=== PATIENT | male | born 1960 | race African-American/Black ===

== ENCOUNTER 2017-08-04 12:41 | Inpatient (IN) | payer OTHER ==
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
[2017-08-04] MEDS ORDERED: MENTHOL/PHENOL 1 EACH UD MM PRN (15:54)
[2017-08-04] MEDS ORDERED: MAGNESIUM CITRATE 300 ML BOTTLE PO PRN (15:54)
[2017-08-04] MEDS ORDERED: P-EPHED 60MG/TRIPROLIDI 2.5MG TABLET PO PRN (15:54)
[2017-08-04] MEDS ORDERED: IBUPROFEN 400 MG TABLET (FP) PO PRN (15:54)
[2017-08-04] MEDS ORDERED: LOPERAMIDE HCL 2 MG CAPSULE PO PRN (15:54)
[2017-08-04] MEDS ORDERED: ACETAMINOPHEN 325 MG TABLET (FP) PO PRN (15:54)
[2017-08-04] MEDS ORDERED: hydrOXYzine PAMOATE 25 MG CAPSULE (FP) PO PRN (15:54)
[2017-08-04] MEDS ORDERED: guaiFENesin/D-METHORPHAN HB 10 ML UNIT-DOSE CUPS PO PRN (15:54)
[2017-08-04] MEDS ORDERED: MAG HYDROX/AL HYDROX/SIMETH 30 ML UNIT-DOSE CUP PO PRN (15:54)
[2017-08-04] MEDS ORDERED: TUBERCULIN PPD 5 TU/0.1ML VIAL ID ONE (20:26)
[2017-08-04 20:56] LABS: URINE APPEARANCE SLCLOUDY; URINE BILIRUBIN NEGATIVE (NEGATIVE); URINE BLOOD NEGATIVE (NEGATIVE); URINE COLOR AMBER; URINE GLUCOSE (UA) NEGATIVE (NEGATIVE); URINE KETONE TRACE (NEGATIVE); URINE LEUK ESTERASE TRACE (NEGATIVE); URINE NITRITE NEGATIVE (NEGATIVE); URINE PROTEIN NEGATIVE (NEGATIVE)
[2017-08-04] MEDS: diphenhydrAMINE HCL 50 MG CAPSULE PO PRN (21:02)
[2017-08-04] MEDS: ATORVASTATIN CA 40 MG TABLET (FP) PO SCH (21:02)
[2017-08-04] MEDS: THIAMINE HCL 100 MG TABLET (FP) PO SCH (21:02)
[2017-08-04 21:09] LABS: URINE MUCUS FEW; URINE RBC 6 /hpf (0-3); URINE WBC 3 /hpf (3-5)
[2017-08-04] MEDS ORDERED: PATIENT'S OWN MEDICATION (NON-FORMULARY) (Metformin Hcl [Glucophage] 1,000 MG) PO SCH (22:00)
[2017-08-05] MEDS ORDERED: METHADONE HCL 40 MG DISPERSABLE TABLET PO SCH (07:45)
[2017-08-05] MEDS ORDERED: METHADONE HCL 10 MG TABLET ONE (07:50)
[2017-08-05] MEDS ORDERED: METHADONE HCL 40 MG DISPERSABLE TABLET ONE (07:50)
[2017-08-05] MEDS: METHADONE 80 MG, METHADONE 30 MG PO SCH (07:55)
[2017-08-05] MEDS: TAMSULOSIN HCL 0.4 MG CAP.ER.24H (FP) PO SCH (07:57)
[2017-08-05] MEDS: metFORMIN HCL 500 MG TABLET (FP) PO SCH ×2 (07:57→16:38)
[2017-08-05] MEDS: PRENATAL VITAMINS W/ FOLIC ACID TABLET (FP) PO SCH (09:40)
[2017-08-05 10:19] LABS: MCH 31.2 pg (25.7-33.7); MCHC 32.9 g/dl (32.0-35.9); MEAN CELL VOLUME 94.7 fl (80-96); MEAN PLT VOLUME 8.2 fl (7.5-11.1); PLATELET COUNT 220 K/MM3 (134-434); RDW 13.9 % (11.9-15.9); WHITE BLOOD COUNT 8.9 K/mm3 (4.0-10.0)
[2017-08-05 10:54] LABS: ALBUMIN 3.1 g/dl (3.4-5.0); ALK PHOS 70 U/L (45-117); ANION GAP 3 (8-16); BILIRUBIN,TOTAL 0.4 mg/dL (0.2-1.0); CALCIUM 8.6 mg/dL (8.5-10.1); CO2 32 mmol/L (21-32); CREATININE 0.9 mg/dL (0.7-1.3); GLUCOSE,RANDOM 96 mg/dL (74-106); SGOT/AST 22 U/L (15-37); SGPT/ALT 21 U/L (12-78); TOT PROT 6.8 g/dl (6.4-8.2)
[2017-08-05 11:48] LABS: HIV 1 & 2 AB NEGATIVE; HIV 1 AGp24 NEGATIVE
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
--- NOTE | 2017-08-05 14:25 | EKG ---
Test Reason : Blood Pressure : / mmHG Vent. Rate : 068 BPM Atrial Rate : 068 BPM P-R Int : 138 ms QRS Dur : 080 ms QT Int : 456 ms P-R-T Axes : 078 033 214 degrees QTc Int : 484 ms NORMAL SINUS RHYTHM POSSIBLE LEFT ATRIAL ENLARGEMENT SEPTAL INFARCT , AGE UNDETERMINED ABNORMAL ECG NO PREVIOUS ECGS AVAILABLE Confirmed by RIANA ROSAS MD ([id number]) on 08/05/2017 2:24:50 PM Referred By: Confirmed By:RIANA ROSAS MD
[2017-08-05] MEDS: buPROPion HCL 100 MG TABLET PO SCH (14:48)
[2017-08-05] MEDS: ATORVASTATIN CA 40 MG TABLET (FP) PO SCH (21:14)
[2017-08-05] MEDS: THIAMINE HCL 100 MG TABLET (FP) PO SCH (21:14)
[2017-08-05] MEDS: traZODone HCL 50 MG TABLET (FP) PO SCH (21:15)
[2017-08-06] MEDS ORDERED: METHADONE HCL 10 MG TABLET ONE (03:45)
[2017-08-06] MEDS ORDERED: METHADONE HCL 40 MG DISPERSABLE TABLET ONE (03:45)
[2017-08-06] MEDS: METHADONE 80 MG, METHADONE 30 MG PO SCH (06:36)
[2017-08-06] MEDS: TAMSULOSIN HCL 0.4 MG CAP.ER.24H (FP) PO SCH (07:43)
[2017-08-06] MEDS: metFORMIN HCL 500 MG TABLET (FP) PO SCH ×2 (07:43→17:06)
[2017-08-06] MEDS: buPROPion HCL 100 MG TABLET PO SCH (09:57)
[2017-08-06] MEDS: PRENATAL VITAMINS W/ FOLIC ACID TABLET (FP) PO SCH (09:59)
[2017-08-06] MEDS: MAGNESIUM HYDROX 2400MG/30ML ORAL SUSPENSION 30 ML CUP PO PRN (11:17)
[2017-08-06] MEDS ORDERED: ALBUTEROL SO4 18 GM HFA INHALER IH ONE (17:12)
[2017-08-06] MEDS: traZODone HCL 50 MG TABLET (FP) PO SCH (21:12)
[2017-08-06] MEDS: ATORVASTATIN CA 40 MG TABLET (FP) PO SCH (21:13)
[2017-08-06] MEDS: THIAMINE HCL 100 MG TABLET (FP) PO SCH (21:14)
[2017-08-07] MEDS ORDERED: METHADONE HCL 40 MG DISPERSABLE TABLET ONE (04:11)
[2017-08-07] MEDS ORDERED: METHADONE HCL 10 MG TABLET ONE (04:11)
[2017-08-07] MEDS: METHADONE 80 MG, METHADONE 30 MG PO SCH (06:27)
[2017-08-07] MEDS: metFORMIN HCL 500 MG TABLET (FP) PO SCH ×2 (06:27→17:08)
[2017-08-07] MEDS: TAMSULOSIN HCL 0.4 MG CAP.ER.24H (FP) PO SCH (08:13)
[2017-08-07] MEDS: ALBUTEROL SO4 18 GM HFA INHALER IH PRN (09:52)
[2017-08-07] MEDS: buPROPion HCL 100 MG TABLET PO SCH (09:52)
[2017-08-07] MEDS: PRENATAL VITAMINS W/ FOLIC ACID TABLET (FP) PO SCH (09:52)
[2017-08-07] MEDS: LISINOPRIL 10 MG TABLET (FP) PO SCH (12:22)
[2017-08-07] MEDS: traZODone HCL 50 MG TABLET (FP) PO SCH (21:45)
[2017-08-07] MEDS: ATORVASTATIN CA 40 MG TABLET (FP) PO SCH (21:45)
[2017-08-07] MEDS: diphenhydrAMINE HCL 50 MG CAPSULE PO PRN (21:45)
[2017-08-07] MEDS: THIAMINE HCL 100 MG TABLET (FP) PO SCH (21:45)
[2017-08-08] MEDS ORDERED: METHADONE HCL 40 MG DISPERSABLE TABLET ONE (04:04)
[2017-08-08] MEDS ORDERED: METHADONE HCL 10 MG TABLET ONE (04:04)
[2017-08-08] MEDS: METHADONE 80 MG, METHADONE 30 MG PO SCH (06:20)
[2017-08-08] MEDS: metFORMIN HCL 500 MG TABLET (FP) PO SCH ×2 (07:56→17:14)
[2017-08-08] MEDS: TAMSULOSIN HCL 0.4 MG CAP.ER.24H (FP) PO SCH (07:56)
[2017-08-08] MEDS: PRENATAL VITAMINS W/ FOLIC ACID TABLET (FP) PO SCH (09:41)
[2017-08-08] MEDS: buPROPion HCL 100 MG TABLET PO SCH (09:41)
[2017-08-08] MEDS: LISINOPRIL 10 MG TABLET (FP) PO SCH (09:41)
[2017-08-08] MEDS: traZODone HCL 50 MG TABLET (FP) PO SCH (21:27)
[2017-08-08] MEDS: THIAMINE HCL 100 MG TABLET (FP) PO SCH (21:27)
[2017-08-08] MEDS: ALBUTEROL SO4 18 GM HFA INHALER IH PRN (21:27)
[2017-08-08] MEDS: ATORVASTATIN CA 40 MG TABLET (FP) PO SCH (21:27)
[2017-08-09] MEDS ORDERED: METHADONE HCL 10 MG TABLET ONE (05:47)
[2017-08-09] MEDS ORDERED: METHADONE HCL 40 MG DISPERSABLE TABLET ONE (05:48)
[2017-08-09] MEDS: METHADONE 80 MG, METHADONE 30 MG PO SCH (06:29)
[2017-08-09] MEDS: metFORMIN HCL 500 MG TABLET (FP) PO SCH ×2 (06:31→16:50)
[2017-08-09] MEDS: TAMSULOSIN HCL 0.4 MG CAP.ER.24H (FP) PO SCH (08:51)
[2017-08-09] MEDS: PRENATAL VITAMINS W/ FOLIC ACID TABLET (FP) PO SCH (09:51)
[2017-08-09] MEDS: LISINOPRIL 10 MG TABLET (FP) PO SCH (09:51)
[2017-08-09] MEDS: buPROPion HCL 100 MG TABLET PO SCH (09:51)
[2017-08-09] MEDS: MAGNESIUM HYDROX 2400MG/30ML ORAL SUSPENSION 30 ML CUP PO PRN (18:55)
[2017-08-09] MEDS: traZODone HCL 50 MG TABLET (FP) PO SCH (21:34)
[2017-08-09] MEDS: THIAMINE HCL 100 MG TABLET (FP) PO SCH (21:34)
[2017-08-09] MEDS: ALBUTEROL SO4 18 GM HFA INHALER IH PRN (21:34)
[2017-08-09] MEDS: ATORVASTATIN CA 40 MG TABLET (FP) PO SCH (21:35)
[2017-08-10] MEDS ORDERED: METHADONE HCL 10 MG TABLET ONE (01:39)
[2017-08-10] MEDS ORDERED: METHADONE HCL 40 MG DISPERSABLE TABLET ONE (01:39)
[2017-08-10] MEDS: METHADONE 80 MG, METHADONE 30 MG PO SCH (06:43)
[2017-08-10] MEDS: metFORMIN HCL 500 MG TABLET (FP) PO SCH ×2 (07:16→17:30)
[2017-08-10] MEDS: TAMSULOSIN HCL 0.4 MG CAP.ER.24H (FP) PO SCH (09:30)
[2017-08-10] MEDS: PRENATAL VITAMINS W/ FOLIC ACID TABLET (FP) PO SCH (10:04)
[2017-08-10] MEDS: LISINOPRIL 10 MG TABLET (FP) PO SCH (10:05)
[2017-08-10] MEDS: buPROPion HCL 100 MG TABLET PO SCH (10:05)
[2017-08-10] MEDS ORDERED: METHADONE HCL 40 MG DISPERSABLE TABLET PO SCH (12:28)
[2017-08-10] MEDS: ALBUTEROL SO4 18 GM HFA INHALER IH PRN (21:26)
[2017-08-10] MEDS: traZODone HCL 50 MG TABLET (FP) PO SCH (21:26)
[2017-08-10] MEDS: THIAMINE HCL 100 MG TABLET (FP) PO SCH (21:26)
[2017-08-10] MEDS: ATORVASTATIN CA 40 MG TABLET (FP) PO SCH (21:26)
[2017-08-11] MEDS ORDERED: METHADONE HCL 10 MG TABLET ONE (04:25)
[2017-08-11] MEDS ORDERED: METHADONE HCL 40 MG DISPERSABLE TABLET ONE (04:26)
[2017-08-11] MEDS ORDERED: METHADONE 80 MG, METHADONE 20 MG PO SCH (06:00)
[2017-08-11] MEDS: metFORMIN HCL 500 MG TABLET (FP) PO SCH ×2 (08:51→17:02)
[2017-08-11] MEDS: TAMSULOSIN HCL 0.4 MG CAP.ER.24H (FP) PO SCH (08:52)
[2017-08-11] MEDS: buPROPion HCL 100 MG TABLET PO SCH (10:00)
[2017-08-11] MEDS: LISINOPRIL 10 MG TABLET (FP) PO SCH (10:00)
[2017-08-11] MEDS: PRENATAL VITAMINS W/ FOLIC ACID TABLET (FP) PO SCH (10:00)
[2017-08-11] MEDS ORDERED: METHADONE HCL 40 MG DISPERSABLE TABLET PO SCH (14:34)
--- NOTE | 2017-08-11 14:37 | PN ---
[facility] Progress Note Note: patient feeling drowsy on methadone would like to slowly decrease dose by another 10mg today, order entered to decrease dose to 90mg tomorrow, [id number] not to decrease dose too quickly. wait at least 2 more weeks for any further dose decrease as he just went down from 110 to 90 in 2 days.
[2017-08-11] MEDS: ATORVASTATIN CA 40 MG TABLET (FP) PO SCH (21:31)
[2017-08-11] MEDS: traZODone HCL 50 MG TABLET (FP) PO SCH (21:31)
[2017-08-11] MEDS: THIAMINE HCL 100 MG TABLET (FP) PO SCH (21:31)
[2017-08-11] MEDS: ALBUTEROL SO4 18 GM HFA INHALER IH PRN (21:32)
[2017-08-12] MEDS ORDERED: METHADONE HCL 10 MG TABLET ONE (06:03)
[2017-08-12] MEDS ORDERED: METHADONE HCL 40 MG DISPERSABLE TABLET ONE (06:03)
[2017-08-12] MEDS: METHADONE 80 MG, METHADONE 10 MG PO SCH (06:40)
[2017-08-12] MEDS: metFORMIN HCL 500 MG TABLET (FP) PO SCH ×2 (06:40→16:56)
[2017-08-12] MEDS: TAMSULOSIN HCL 0.4 MG CAP.ER.24H (FP) PO SCH (08:05)
[2017-08-12] MEDS: LISINOPRIL 10 MG TABLET (FP) PO SCH (09:56)
[2017-08-12] MEDS: PRENATAL VITAMINS W/ FOLIC ACID TABLET (FP) PO SCH (09:56)
[2017-08-12] MEDS: buPROPion HCL 100 MG TABLET PO SCH (09:56)
[2017-08-12] MEDS: traZODone HCL 50 MG TABLET (FP) PO SCH (21:45)
[2017-08-12] MEDS: THIAMINE HCL 100 MG TABLET (FP) PO SCH (21:45)
[2017-08-12] MEDS: ATORVASTATIN CA 40 MG TABLET (FP) PO SCH (21:45)
[2017-08-12] MEDS: diphenhydrAMINE HCL 50 MG CAPSULE PO PRN (21:46)
[2017-08-13] MEDS ORDERED: METHADONE HCL 40 MG DISPERSABLE TABLET ONE (03:35)
[2017-08-13] MEDS ORDERED: METHADONE HCL 10 MG TABLET ONE (03:35)
[2017-08-13] MEDS: METHADONE 80 MG, METHADONE 10 MG PO SCH (06:17)
[2017-08-13] MEDS: metFORMIN HCL 500 MG TABLET (FP) PO SCH ×2 (07:23→16:59)
[2017-08-13] MEDS: TAMSULOSIN HCL 0.4 MG CAP.ER.24H (FP) PO SCH (07:30)
[2017-08-13] MEDS: PRENATAL VITAMINS W/ FOLIC ACID TABLET (FP) PO SCH (09:50)
[2017-08-13] MEDS: buPROPion HCL 100 MG TABLET PO SCH (09:50)
[2017-08-13] MEDS: LISINOPRIL 10 MG TABLET (FP) PO SCH (09:50)
[2017-08-13] MEDS: ALBUTEROL SO4 18 GM HFA INHALER IH PRN (09:51)
[2017-08-13] MEDS: ATORVASTATIN CA 40 MG TABLET (FP) PO SCH (21:32)
[2017-08-13] MEDS: traZODone HCL 50 MG TABLET (FP) PO SCH (21:32)
[2017-08-13] MEDS: THIAMINE HCL 100 MG TABLET (FP) PO SCH (21:32)
[2017-08-13] MEDS: diphenhydrAMINE HCL 50 MG CAPSULE PO PRN (21:33)
[2017-08-14] MEDS: metFORMIN HCL 500 MG TABLET (FP) PO SCH ×2 (06:51→16:47)
[2017-08-14] MEDS: METHADONE HCL 40 MG DISPERSABLE TABLET PO SCH (06:51)
[2017-08-14] MEDS: TAMSULOSIN HCL 0.4 MG CAP.ER.24H (FP) PO SCH (07:59)
[2017-08-14] MEDS: ALBUTEROL SO4 18 GM HFA INHALER IH PRN (09:39)
[2017-08-14] MEDS: LISINOPRIL 10 MG TABLET (FP) PO SCH (09:39)
[2017-08-14] MEDS: PRENATAL VITAMINS W/ FOLIC ACID TABLET (FP) PO SCH (09:39)
[2017-08-14] MEDS: buPROPion HCL 100 MG TABLET PO SCH (09:39)
[2017-08-14] MEDS: ATORVASTATIN CA 40 MG TABLET (FP) PO SCH (21:37)
[2017-08-14] MEDS: THIAMINE HCL 100 MG TABLET (FP) PO SCH (21:37)
[2017-08-14] MEDS: diphenhydrAMINE HCL 50 MG CAPSULE PO PRN (21:37)
[2017-08-14] MEDS: traZODone HCL 50 MG TABLET (FP) PO SCH (21:37)
[2017-08-15] MEDS: METHADONE HCL 40 MG DISPERSABLE TABLET PO SCH (06:24)
[2017-08-15] MEDS: TAMSULOSIN HCL 0.4 MG CAP.ER.24H (FP) PO SCH (07:34)
[2017-08-15] MEDS: metFORMIN HCL 500 MG TABLET (FP) PO SCH ×2 (07:34→16:48)
[2017-08-15] MEDS: LISINOPRIL 10 MG TABLET (FP) PO SCH (09:57)
[2017-08-15] MEDS: PRENATAL VITAMINS W/ FOLIC ACID TABLET (FP) PO SCH (09:57)
[2017-08-15] MEDS: buPROPion HCL 100 MG TABLET PO SCH (09:57)
[2017-08-15] MEDS: traZODone HCL 50 MG TABLET (FP) PO SCH (21:26)
[2017-08-15] MEDS: THIAMINE HCL 100 MG TABLET (FP) PO SCH (21:26)
[2017-08-15] MEDS: diphenhydrAMINE HCL 50 MG CAPSULE PO PRN (21:26)
[2017-08-15] MEDS: ATORVASTATIN CA 40 MG TABLET (FP) PO SCH (21:27)
[2017-08-16] MEDS: METHADONE HCL 40 MG DISPERSABLE TABLET PO SCH (06:35)
[2017-08-16] MEDS: metFORMIN HCL 500 MG TABLET (FP) PO SCH ×2 (06:37→16:56)
[2017-08-16] MEDS: TAMSULOSIN HCL 0.4 MG CAP.ER.24H (FP) PO SCH (07:45)
[2017-08-16] MEDS: buPROPion HCL 100 MG TABLET PO SCH (09:45)
[2017-08-16] MEDS: PRENATAL VITAMINS W/ FOLIC ACID TABLET (FP) PO SCH (09:45)
[2017-08-16] MEDS: LISINOPRIL 10 MG TABLET (FP) PO SCH (09:46)
[2017-08-16] MEDS: ATORVASTATIN CA 40 MG TABLET (FP) PO SCH (21:29)
[2017-08-16] MEDS: THIAMINE HCL 100 MG TABLET (FP) PO SCH (21:29)
[2017-08-16] MEDS: traZODone HCL 50 MG TABLET (FP) PO SCH (21:29)
[2017-08-16] MEDS: MAGNESIUM HYDROX 2400MG/30ML ORAL SUSPENSION 30 ML CUP PO PRN (21:30)
[2017-08-17] MEDS ORDERED: METHADONE HCL 10 MG TABLET ONE (04:14)
[2017-08-17] MEDS ORDERED: METHADONE HCL 40 MG DISPERSABLE TABLET ONE (04:15)
[2017-08-17] MEDS ORDERED: METHADONE HCL 40 MG DISPERSABLE TABLET PO SCH (06:00)
[2017-08-17] MEDS: METHADONE 40 MG, METHADONE 30 MG PO SCH (06:27)
[2017-08-17] MEDS: metFORMIN HCL 500 MG TABLET (FP) PO SCH ×2 (06:29→17:08)
[2017-08-17] MEDS: TAMSULOSIN HCL 0.4 MG CAP.ER.24H (FP) PO SCH (08:00)
[2017-08-17] MEDS: buPROPion HCL 100 MG TABLET PO SCH (10:02)
[2017-08-17] MEDS: PRENATAL VITAMINS W/ FOLIC ACID TABLET (FP) PO SCH (10:02)
[2017-08-17] MEDS: LISINOPRIL 10 MG TABLET (FP) PO SCH (10:02)
[2017-08-17] MEDS: ALBUTEROL SO4 18 GM HFA INHALER IH PRN (10:03)
[2017-08-17] MEDS: THIAMINE HCL 100 MG TABLET (FP) PO SCH (22:10)
[2017-08-17] MEDS: traZODone HCL 50 MG TABLET (FP) PO SCH (22:11)
[2017-08-17] MEDS: ATORVASTATIN CA 40 MG TABLET (FP) PO SCH (22:11)
[2017-08-18] MEDS ORDERED: METHADONE HCL 40 MG DISPERSABLE TABLET ONE (05:30)
[2017-08-18] MEDS ORDERED: METHADONE HCL 10 MG TABLET ONE (05:30)
[2017-08-18] MEDS: METHADONE 40 MG, METHADONE 30 MG PO SCH (06:32)
[2017-08-18] MEDS: metFORMIN HCL 500 MG TABLET (FP) PO SCH ×2 (06:33→16:52)
--- NOTE | 2017-08-18 07:30 | PN ---
Psychiatric Progress Note Vital Signs: Vital Signs Period Temp Pulse Resp BP Sys/Angel Pulse Ox Last 24 Hr 98.7 F 63-69 18-18 132-154/80-99 Date of Session: 08/18/17 Chief Complaint:: Discharge Note HPI: Patient addressing Alcohol and Cocaine Dependence comorbid with Opoid Dependence on Agonost Therapy, Nicotine Dependence and Bipolar Disorder ROS: HTN, type 2 DM, Asthma were medically managed Current Medications: Active Medications Generic Name Dose Route Start Last Admin Trade Name Freq PRN Reason Stop Dose Admin Acetaminophen 650 mg 08/04/17 15:54 Tylenol - PO Q4H PRN PAIN Al Hydroxide/Mg Hydroxide 30 ml 08/04/17 15:54 08/08/17 19:27 Mylanta Oral Suspension - PO 30 ml Q6H PRN Administration DYSPEPSIA Albuterol Sulfate 2 puff 08/06/17 17:13 08/17/17 10:03 Ventolin Hfa Inhaler - IH 2 puff Q4H PRN Administration SHORT OF BREATH/WHEEZING Atorvastatin Calcium 40 mg 08/04/17 22:00 08/17/17 22:11 Lipitor - PO 40 mg HS DAYAN Administration Bupropion HCl 200 mg 08/05/17 14:15 08/17/17 10:02 Wellbutrin - PO 200 mg DAILY DAYAN Administration Eucalyptus/Menthol/Phenol/Sorbitol 1 each 08/04/17 15:54 Cepastat Lozenge - MM Q4H PRN SORE THROAT Ibuprofen 400 mg 08/04/17 15:54 08/04/17 21:03 Motrin - PO 400 mg Q6H PRN Administration SEVERE PAIN Lisinopril 10 mg 08/07/17 11:15 08/17/17 10:02 Prinivil PO 10 mg DAILY DAYAN Administration Loperamide HCl 4 mg 08/04/17 15:54 08/08/17 06:22 Imodium - PO 4 mg Q6H PRN Administration DIARRHEA Magnesium Citrate 300 ml 08/04/17 15:54 Citroma - PO Q48H PRN CONSTIPATION Magnesium Hydroxide 30 ml 08/04/17 15:54 08/16/17 21:30 Milk Of Magnesia - PO 30 ml DAILY PRN Administration CONSTIPATION Metformin HCl 1,000 mg 08/05/17 07:00 08/18/17 06:33 Glucophage - PO 1,000 mg BIDAC DAYAN Administration Methadone HCl 40 mg/ Methadone 70 mg 08/17/17 06:00 08/18/17 06:32 HCl 30 mg PO 08/23/17 05:59 70 mg DAILY@0600 DAYAN Administration Multivit/Folic Acid/Iron 1 tab 08/05/17 10:00 08/17/17 10:02 Vitamins ([facility]) - PO 1 tab DAILY DAYAN Administration Pseudoephedrine/Triprolidine 1 combo 08/04/17 15:54 Actifed - PO TID PRN NASAL CONGESTION Tamsulosin HCl 0.4 mg 08/05/17 08:30 08/17/17 08:00 Flomax - PO 0.4 mg DAILY@0830 DAYAN Administration Thiamine HCl 100 mg 08/04/17 22:00 08/17/17 22:10 Vitamin B1 - PO 100 mg HS DAYAN Administration Trazodone HCl 150 mg 08/05/17 22:00 08/17/17 22:11 Desyrel - PO 150 mg HS DAYAN Administration Current Side Effect: No Lab tests ordered: Yes Lab tests reviewed: Yes Provider note:: Patient will complete this program on 08/19/17. He has met his treatment goals and will continue to address his issues in senior living residential treatment at [facility]. 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 However from his participation in this program, he has learned ways to accept that without using. He said that among other things he has to make meetings and get a sponsor. He responded well to Wellbutrin 200 mg po daily and Trazadone 150 mg po HS. Scripts for 30 days supply of these medications will be electronically transmitted to [facility] at [address] [place], [place] [address] [place] [address]. He is stable for discharge on 08/19/17 Total face to face time:: 35 Mental Status Exam - Mental Status Exam Alert and Oriented to: Time, Place, Person Cognitive Function: Fair Patient Appearance: Well Groomed Mood: Hopeful, Euthymic Affect: Appropriate Patient Behavior: Cooperative Speech Pattern: Clear, Artificially Ventilated Thought Process: Intact, Goal Oriented Thought Disorder: Not Present Hallucinations: Denies Insight/Judgement: Fair Sleep: Fair Appetite: Good Muscle strength/Tone: Normal Gait/Station: Normal Psychiatric Treatment Plan - Problem List (1) Alcohol dependence Current Visit: Yes (2) Cocaine dependence Current Visit: Yes (3) Opioid dependence on agonist therapy Current Visit: Yes (4) Nicotine dependence Current Visit: Yes (5) Bipolar disorder Current Visit: Yes (6) DM2 (diabetes mellitus, type 2) Current Visit: Yes (7) Essential hypertension Current Visit: Yes (8) Asthma Current Visit: Yes Initial treatment plan: Patient will be discharged tomorrow and 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
[2017-08-18] MEDS: TAMSULOSIN HCL 0.4 MG CAP.ER.24H (FP) PO SCH (09:06)
[2017-08-18] MEDS: buPROPion HCL 100 MG TABLET PO SCH (10:05)
[2017-08-18] MEDS: PRENATAL VITAMINS W/ FOLIC ACID TABLET (FP) PO SCH (10:05)
[2017-08-18] MEDS: LISINOPRIL 10 MG TABLET (FP) PO SCH (10:06)
[2017-08-18] MEDS: ATORVASTATIN CA 40 MG TABLET (FP) PO SCH (21:02)
[2017-08-18] MEDS: THIAMINE HCL 100 MG TABLET (FP) PO SCH (21:02)
[2017-08-18] MEDS: traZODone HCL 50 MG TABLET (FP) PO SCH (21:02)
[2017-08-19] MEDS ORDERED: METHADONE HCL 10 MG TABLET ONE (05:38)
[2017-08-19] MEDS ORDERED: METHADONE HCL 40 MG DISPERSABLE TABLET ONE (05:39)
[2017-08-19] MEDS: METHADONE 40 MG, METHADONE 30 MG PO SCH (06:33)
[2017-08-19] MEDS: metFORMIN HCL 500 MG TABLET (FP) PO SCH (06:33)
[2017-08-19 06:46] VITALS: BP 143/97; PULSE 62; TEMP 98.1
[2017-08-19] MEDS: TAMSULOSIN HCL 0.4 MG CAP.ER.24H (FP) PO SCH (07:46)
[2017-08-19] MEDS ORDERED: PT OWN MED DRAWER 7, Y5N ONE (08:23)
== END 2017-08-19 08:20 | disposition home or self-care (01) | DRG 772 ==
LOC: YASAS 12:41 → Y3W 16:45
PROVIDERS: ADMIT Psychiatry & Neurology Psychiatry; ATTEND Psychiatry & Neurology Psychiatry
PROC: HZ42ZZZ Group Counseling for Substance Abuse Treatment, Cognitive-Behavioral (ICD-10-PCS; principal; 2017-08-04)
DX: F11.20 Opioid dependence, uncomplicated (principal); F10.20 Alcohol dependence, uncomplicated; F14.20 Cocaine dependence, uncomplicated; F17.210 Nicotine dependence, cigarettes, uncomplicated; F31.9 Bipolar disorder, unspecified; I10 Essential (primary) hypertension; E11.9 Type 2 diabetes mellitus without complications; Z79.84 Long term (current) use of oral hypoglycemic drugs; J45.909 Unspecified asthma, uncomplicated; R63.4 Abnormal weight loss; Z68.20 Body mass index [BMI] 20.0-20.9, adult
CPT/HCPCS: 36415; 80053; 81003; 81015; 85027; 86593; 87389; 93005; 93010